=== PATIENT | male | born 1995 | race Caucasian/White ===

== ENCOUNTER 2020-08-25 09:03 | Emergency (ER) | payer SELFPAY ==
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
[2020-08-25] MEDS ORDERED: Morphine 4 MG/ML Syringe IVPUSH ONE (09:14)
[2020-08-25] MEDS ORDERED: Diphtheria,Pertussis(Acell),Tetanus Vaccine 0.5 ML Syringe IM ONE (09:15)
[2020-08-25] MEDS ORDERED: Morphine 4 MG/ML Syringe ONE (09:15)
[2020-08-25 10:14] LABS: BLOOD UREA NITROGEN,BUN 14 mg/dL (7.0-18.0); CARBON DIOXIDE,CO2 22.6 mmol/L (21.0-32.0); CHLORIDE,CL 101 mmol/L (98-107); GLUCOSE RANDOM 111 mg/dL (74-106); POTASSIUM,K 3.3 mmol/L (3.5-5.1); SODIUM,NA 137 mmol/L (136-148)
--- NOTE | 2020-08-25 10:21 | CR ---
INDICATION: Left arm pain and injury. TECHNIQUE: Three view. FINDINGS: Transverse displaced fracture with angulation through the distal diaphysis of the left ulna is noted. Ulnar styloid fracture is noted. Transverse mildly angulated fracture through the distal diaphysis of the left radius is noted. The visualized radiocarpal joint is intact. The elbow appears to be intact. IMPRESSION: Transverse angulated and displaced fractures of the distal diaphysis of the left radius and ulna is identified. Ulnar styloid fracture is noted. Dictated by Alin Segundo MD @ Aug 25 2020 10:18AM Signed by Dr. Alin Segundo @ Aug 25 2020 10:20AM
--- NOTE | 2020-08-25 10:29 | CR ---
INDICATION: Bilateral hand pain and injury. Four view right hand and 3 view left hand. FINDINGS: Right hand demonstrates acute fracture base of proximal phalanx of the 5th digit with intra-articular involvement. Fracture involving the middle phalanx of the 3rd digit is noted. Questionable old fracture deformity of the 4th metatarsal noted. Left hand: No fracture is seen of the left hand. Ulnar styloid fracture is noted. IMPRESSION: Acute fractures involving the right proximal phalanx of the 5th digit and the middle phalanx of the 3rd digit. Intra-articular involvement at the 5th MCP joint is noted. Dictated by Alin Segundo MD @ Aug 25 2020 10:29AM Signed by Dr. Alin Segundo @ Aug 25 2020 10:29AM
--- NOTE | 2020-08-25 10:34 | CR ---
INDICATION: Left shoulder pain and injury. TECHNIQUE: Two-view. FINDINGS: No acute fracture or dislocation is seen of the left shoulder. The AC and glenohumeral joints appear to be preserved. IMPRESSION: No acute fracture or dislocation is seen of the left shoulder. Dictated by Alin Segundo MD @ Aug 25 2020 10:31AM Signed by Dr. Alin Segundo @ Aug 25 2020 10:32AM
--- NOTE | 2020-08-25 10:36 | CR ---
INDICATION: Chest pain after fall. TECHNIQUE: Single-view chest and 3 view left ribs. FINDINGS: Heart size is normal. Lungs are free of infiltrate. There is no pneumothorax. Left rib detail films demonstrate no visualized left rib fracture. IMPRESSION: No acute infiltrate or pneumothorax is seen. No visualized left rib fracture is seen. Dictated by Alin Segundo MD @ Aug 25 2020 10:33AM Signed by Dr. Alin Segundo @ Aug 25 2020 10:33AM
--- NOTE | 2020-08-25 11:15 | CR ---
Indication: Injury and pain Technique: Left humerus 2 views Comparison: None Findings: Bones: Alignment is normal. No fractures or bone lesions. Joint spaces: Unremarkable. Soft tissues: Unremarkable. Impression: No sign of acute injury. Dictated by Dawit Khanna MD @ Aug 25 2020 11:12AM Signed by Dr. Dawit Khanna @ Aug 25 2020 11:14AM
[2020-08-25] MEDS ORDERED: Bacitracin Oint 1 GM U/D Packet ONE (11:57)
[2020-08-25] MEDS ORDERED: Bacitracin Oint 1 GM U/D Packet TOP ONE (11:57)
== END 2020-08-25 12:47 | disposition home or self-care (01) ==
LOC: MW.ED 09:03
DX: S52.222A Displaced transverse fracture of shaft of left ulna, initial encounter for closed fracture (principal); S52.322A Displaced transverse fracture of shaft of left radius, initial encounter for closed fracture; Z23 Encounter for immunization; V86.56XA Driver of dirt bike or motor/cross bike injured in nontraffic accident, initial encounter
CPT/HCPCS: 29125; 36415; 71101; 73030; 73060; 73090; 73130; 80048; 80307; 85025; 90471; 90715; 96374; 99284; J2270

== ENCOUNTER 2020-12-23 10:30 | Emergency (ER) | payer BC ==
--- NOTE | 2020-12-23 10:36 | EDM.PDOC ---
ED HPI GENERAL MEDICAL PROBLEM - General Chief Complaint: General Stated Complaint: absess tooth Time Seen by Provider: 12/23/20 10:32 Source of Information: Reports: Patient History Limitations: Reports: No Limitations - History of Present Illness INITIAL COMMENTS - FREE TEXT/NARRATIVE: HISTORY AND PHYSICAL: History of present illness: Patient is a 25-year-old male who presents to the emergency room with complaints of dental abscess and pain from the right lower jaw. He states he has had a broken tooth for "a while" and over the past 2 days has noticed some increased swelling and tenderness along the lower gumline. He recently went back to work and states he now has insurance, does plan on seeing a dentist but since its the weekend is unable to get in until next week. Patient denies any fever, chills, headache, change in vision, syncope or near syncope. Denies any chest pain, back pain, shortness of breath or cough. Denies any GI or symptoms. Patient has been eating and drinking appropriately. Review of systems: As per history of present illness and below otherwise all systems reviewed and negative. Past medical history: As per history of present illness and as reviewed below otherwise noncontributory. Surgical history: As per history of present illness and as reviewed below otherwise noncontributory. Social history: See social history for further information Family history: As per history of present illness and as reviewed below otherwise noncontributory. Physical exam: General: Well developed and well nourished. Alert and orientated x 3. Nontoxic in appearance and in no acute distress. Vital signs are stable and have been reviewed by me. Nursing notes were reviewed. HEENT: Atraumatic, normocephalic, pupils equal and reactive bilaterally, negative for conjunctival pallor or scleral icterus, mucous membranes moist, TMs normal bilaterally, throat clear, multiple dental caries and poor dentition throughout. He does have soft tissue swelling along the #28 through 30 with severe decay. You are able to visualize swelling to exterior jaw. Swelling does not extend into the floor of the mouth, no floor tenderness. His neck supple, nontender, trachea midline. No drooling or trismus noted. No meningeal signs. No hot potato voice noted. Lungs: Clear to auscultation bilaterally. No wheezes, rales, or rhonchi. Normal work of breathing, no accessory muscles used. Heart: S1S2, regular rate and rhythm without overt murmur, gallops, or rubs. No JVD. No peripheral edema Abdomen: Soft, nondistended, nontender. Skin: Intact, warm, dry. No lesions or rashes noted. Hematologic: No petechiae or purpra. Mucosa appropriate color and normal nail bed color and refill. Extremities: Atraumatic, moves all extremities per self without difficulty or deficits, negative for cords or calf pain. Neurovascular unremarkable. Neuro: Awake, alert, oriented. Cranial nerves II through XII unremarkable. Cerebellum unremarkable. Motor and sensory unremarkable throughout. Exam nonfocal. Psychiatric: Mood and affect are appropriate. Normal thought process. Answering questions appropriately. Notes: *This patient was seen and evaluated during the 2019 SARS-CoV-2 novel coronavirus pandemic period. Community viral transmission is ongoing at time of this encounter and the emergency department is operating under pandemic response procedures. I have talked with the patient about today's findings, in addition to providing specific details for plan of care. Reassessment at the time of disposition demonstrates that the patient is in no acute distress. The patient is stable for discharge, counseling was provided and we discussed in great detail signs and symptoms that would prompt them to return to the Emergency Department. Medication, follow up and supportive care measures were reviewed and discussed. Voices understanding and is agreeable to plan of care. Denies any further questions or concerns at this time. Diagnostics: None Therapeutics: Dental balls Prescription: Augmentin, Tylenol #3 Impression: Dental Abscess Plan: 1. You were evaluated today on an emergent basis. Please take the medications as directed. 2. Tylenol and/or ibuprofen as needed for pain management. "Tooth Balls" have been given to you; apply along the gumline every 2-3 hours as needed. Do not swallow these; external use only. 3. We encourage you to follow up with a dentist for re-evaluation and further care/management. 4. If your symptoms should worsen, new symptoms develop or any of the signs and symptoms we discussed should arise please return to the emergency room or call 911 (if needed). Definitive disposition and diagnosis as appropriate pending reevaluation and review of above. - Related Data Allergies Allergy/AdvReac Type Severity Reaction Status Date / Time No Known Allergies Allergy Verified 08/25/20 09:21 Home Meds: Home Meds Acetaminophen/oxyCODONE [Percocet 325-5 MG] 1 each PO Q6HR 5 Days #20 tab 08/25/20 [Rx] Naproxen Sodium [Naproxen Sodium ER] 500 mg PO BID 10 Days #20 tablet.er 08/25/20 [Rx] Past Medical History - Past Health History Medical/Surgical History: Denies Medical/Surgical History Social & Family History - Family History Family Medical History: Unobtainable ED ROS GENERAL - Review of Systems Review Of Systems: Comprehensive ROS is negative, except as noted in HPI. ED EXAM, GENERAL - Physical Exam Exam: See Below (See dictation) Course - Orders/Labs/Meds Meds: Medications Discontinued Medications Generic Name Dose Route Start Last Admin Trade Name Freq PRN Reason Stop Dose Admin Benzocaine 2 each 12/23/20 10:40 Benzocaine 20% Topical Nelson Ud MUCMEM 12/23/20 10:41 ONETIME ONE Lidocaine HCl 15 ml 12/23/20 10:40 Lidocaine 2% Viscous Solution 15 Ml Cup PO 12/23/20 10:41 ONETIME ONE Departure - Departure Time of Disposition: 10:52 Disposition: Home, Self-Care 01 Clinical Impression: Dental abscess - Discharge Information Instructions: Dental Abscess, [id number] Forms: ED Department Discharge Additional Instructions: The following information is given to patients seen in the emergency department who are being discharged to home. This information is to outline your options for follow-up care. We provide all patients seen in our emergency department with a follow-up referral. The need for follow-up, as well as the timing and circumstances, are variable depending upon the specifics of your emergency department visit. If you don't have a primary care physician on staff, we will provide you with a referral. We always advise you to contact your personal physician following an emergency department visit to inform them of the circumstance of the visit and for follow-up with them and/or the need for any referrals to a consulting specialist. The emergency department will also refer you to a specialist when appropriate. This referral assures that you have the opportunity for follow-up care with a specialist. All of these measure are taken in an effort to provide you with optimal care, which includes your follow-up. Under all circumstances we always encourage you to contact your private physician who remains a resource for coordinating your care. When calling for follow-up care, please make the office aware that this follow-up is from your recent emergency room visit. If for any reason you are refused follow-up, please contact the [facility] Emergency Department at and asked to speak to the emergency department charge nurse. [facility] [address] [place] [address] [facility] [address] [place] [address] Thank you for choosing the [facility] emergency department in [place] for your medical needs today. It was a pleasure caring for you. Today you were seen in the emergency department for dental abscess. 1. You were evaluated today on an emergent basis. Please take the medications as directed. 2. Tylenol and/or ibuprofen as needed for pain management. "Tooth Balls" have been given to you; apply along the gumline every 2-3 hours as needed. Do not swallow these; external use only. 3. We encourage you to follow up with a dentist for re-evaluation and further care/management. 4. If your symptoms should worsen, new symptoms develop or any of the signs and symptoms we discussed should arise please return to the emergency room or call 911 (if needed).
[2020-12-23] MEDS ORDERED: Benzocaine 20% Topical Spray UD MUCMEM ONE (10:40)
[2020-12-23] MEDS ORDERED: Lidocaine 2% Viscous Solution 15 ML Cup PO ONE (10:40)
== END 2020-12-23 11:05 | disposition home or self-care (01) ==
LOC: MW.ED 10:30
DX: K04.7 Periapical abscess without sinus (principal)
CPT/HCPCS: 99282; A9270; 99283